=== PATIENT | female | born 1970 | race Caucasian/White ===

== ENCOUNTER 2018-11-05 13:25 | Emergency (ER) | payer OTHER ==
[2018-11-05] MEDS: DEXAMETHASONE 10 MG/ML 1 ML INJ IM (14:26)
[2018-11-05 14:33] LABS: URINE PH (Dip) POC 6.5 (5.0-8.5)
[2018-11-05 14:33] LABS: URINE BLOOD (Dip) POC 3+ (NEGATIVE); URINE GLUCOSE (Dip) POC Negative (NEGATIVE); URINE KETONES (Dip) POC Negative (NEGATIVE); URINE LEUKOCYTE EST (Dip) POC Negative (NEGATIVE); URINE NITRITE (Dip) POC Negative (NEGATIVE); URINE TOTAL PROTEIN POC 1+ (NEGATIVE)
[2018-11-05] MEDS: ACETAMINOPHEN 325 MG TAB PO (16:25)
[2018-11-05] MEDS: HYDROCODONE/APAP (5/325) TAB PO (17:44)
== END 2018-11-05 18:30 | disposition home or self-care (01) ==
LOC: FTE 13:25
DX: M51.36 Other intervertebral disc degeneration, lumbar region (principal); M54.40 Lumbago with sciatica, unspecified side
CPT/HCPCS: 72131; 81003; 81025; 96372; 99285-25